=== PATIENT | male | born 1990 | race African-American/Black ===

== ENCOUNTER 2024-08-23 15:25 | Emergency (ER) | payer MEDICAID ==
[~2024-08-23] VITALS: Ht 170.2 cm; Wt 72.7 kg
[2024-08-23 15:31] VITALS: TEMP 98.4
[2024-08-23] MEDS ORDERED: ACET-2247 PO (15:44)
[2024-08-23] MEDS: PB/HYOSCY/ATR/SCOP/LIDO/MAALOX 55 ML BOTTLE PO ONE (16:30)
[2024-08-23 16:40] LABS: PLATELET COUNT (AUTO) 157 K/uL (150-450); RED BLOOD CELL COUNT(AUTO) 4.95 MIL/uL (4.50-5.90); RED CELL DISTRIBUTION WIDTH 13.9 % (11.5-14.5); WHITE BLOOD COUNT (AUTO) 3.3 K/uL (4.5-11.0)
[2024-08-23 16:47] LABS: CALCIUM, TOTAL 8.8 mg/dL (8.8-10.5); CREATININE 1.03 mg/dL (0.60-1.30); GLOMERULAR FILTR. RATE CALC > 60 mL/min (>60); GLUCOSE,RANDOM 96 mg/dL (70-110); SODIUM SERUM 140 mmol/L (136-145); UREA NITROGEN, BLOOD 8 mg/dL (7-18)
[2024-08-23 16:54] LABS: APPEARANCE,URINE CLEAR (CLEAR); GLUCOSE, URINE (UA) NEGATIVE (NEGATIVE); LEUKOCYTE ESTERASE ,URINE NEGATIVE (NEGATIVE); NITRATE,URINE NEGATIVE (NEGATIVE); OCCULT BLOOD,URINE NEGATIVE (NEGATIVE); SPECIFIC GRAVITIY, URINE 1.025 (1.003-1.030)
[2024-08-23] MEDS ORDERED: FAMO20 PO (17:29)
[2024-08-23 17:35] VITALS: BP 121/79; PULSE 66; RESP 18; O2SAT 100
== END 2024-08-23 17:36 | disposition home or self-care (01) ==
LOC: EMS 15:25
DX: K29.70 Gastritis, unspecified, without bleeding (principal); Z79.899 Other long term (current) drug therapy
CPT/HCPCS: 80048; 81003; 83690; 85025; 99283; 99284